=== PATIENT | male | born 1960 | race Caucasian/White ===

== ENCOUNTER 2016-09-14 09:17 | Inpatient (IN) ==
--- NOTE | 2016-09-14 09:39 | Diag Imaging Result Doc PS360 ---
EXAM: HEAD W/O CONTRAST HISTORY: injury TECHNIQUE: COMPARISON: 03/28/2016 FINDINGS: No parenchymal hemorrhage. No epidural or subdural hematoma. No subarachnoid hemorrhage. Mild atrophy. No mass identified on this noncontrasted exam. No hydrocephalus. No sinus opacification. Minimal right frontal scalp soft tissue swelling. No skull fracture. IMPRESSION: Mild right frontal scalp soft tissue swelling, but no intracranial injury. Electronically signed by Cezar Campbell 09/14/2016 9:36 AM
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
[2016-09-14] MEDS ORDERED: XYLOCAINE 1%/EPI 1:100,000 INJ ONE (09:47)
[2016-09-14] MEDS ORDERED: NORCO-10 PO ONE (09:48)
[2016-09-14] MEDS ORDERED: BOOSTRIX VACCINE IM ONE (09:48)
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
[2016-09-14] MEDS ORDERED: NS 1,000 ML IV ONE ×2 (11:57→15:53)
[2016-09-14 12:41] LABS: MANUAL DIFF NEEDED? NO
[2016-09-14 12:47] LABS: BASO% 0.3 % (0.0-0.8); EOS# 0.11 X1000 (0.0-0.7); EOS% 1.7 % (0.0-10.0); HEMATOCRIT 37.6 % (42.0-52.0); LYMPH# 1.75 X1000 (1.2-3.4); LYMPH% 26.6 % (20.5-51.1); MCH 30.2 PG (27-31); MCHC 34.6 g/dL (33-37); MCV 87.4 FL (81-99); MONO# 0.55 X1000 (0.11-0.59); MONO% 8.3 % (1.7-9.3); MPV 10.9 FL (7.4-10.4); NEUT% 63.1 % (42.2-75.2); PLT 181 X1000 (130-400)
[2016-09-14] MEDS ORDERED: ATROPINE IV ONE (12:59)
[2016-09-14] MEDS ORDERED: ATROPINE SYRINGE IV ONE ×3 (12:59→19:00)
[2016-09-14] MEDS ORDERED: EPINEPHRINE SYRINGE IV ONE ×2 (13:00→19:00)
[2016-09-14 13:11] LABS: AGAP 13; ALBUMIN 4.1 g/dL (3.5-5.0); ALKALINE PHOSPHATASE 76 U/L (32-122); BUN 11 mg/dL (8-22); CALCIUM 8.8 mg/dL (8.8-10.2); CHLORIDE 104 mmol/L (98-107); COSMO 280; GOT 18 U/L (10-34); GPT 11 U/L (10-44); POTASSIUM 4.4 mmol/L (3.5-5.1); SODIUM 141 mmol/L (136-145); TCO2 24 mmol/L (25-35); TOTAL BILIRUBIN 0.71 mg/dL (0.20-1.00); TOTAL PROTEIN 6.6 g/dL (6.3-8.3)
--- NOTE | 2016-09-14 13:43 | ED EKG INTERP ---
This chart was entered by Bright Koch Scribe, acting as scribe for Phyllis Oliver MD. EKG Interpretation - EKG Time of EKG reading by physician:: 12:55 EKG Read and Signed by:: Phyllis Oliver EKG Interpretation (*Must complete 3 of following elements*): Abnormal Rate: 59 Rhythm: Sinus Bradycardia Cath[place]in: normal QRS: normal CO Interval: normal ST Wave: normal Comments: ekg done after iv dose atropine This chart was documented by the indicated scribe, (Bright Koch, Scribe) and accurately reflects the services I performed and decisions made by me, Phyllis Oliver MD, as attested by the provider's signature.
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
[2016-09-14 13:56] LABS: UR AMPHETAMINES QUAL PRESUMPTIVE POSITIVE (NONE DETECT); UR BARBITUATES QUAL NONE DETECTED (NONE DETECT); UR BENZODIAZEPIN QUAL PRESUMPTIVE POSITIVE (NONE DETECT); UR CANNABINOIDS QUAL NONE DETECTED (NONE DETECT); UR COCAINE QUAL PRESUMPTIVE POSITIVE (NONE DETECT); UR METHADONE QUAL NONE DETECTED (NONE DETECT); UR OPIATES QUAL PRESUMPTIVE POSITIVE (NONE DETECT); UR OXYCODONE QUAL NONE DETECTED (NONE DETECT); UR PCP QUAL NONE DETECTED (NONE DETECT)
[2016-09-14] MEDS ORDERED: ZOFRAN IV PRN (15:53)
--- NOTE | 2016-09-14 16:30 | Diag Imaging Result Doc PS360 ---
EXAM: CHEST-PORTABLE HISTORY: dyspnea TECHNIQUE: Portable upright COMPARISON: 02/25/2016 FINDINGS: The lungs are well expanded. The heart is not enlarged. The vessels are not distended. No pneumonia. No pleural effusions identified. IMPRESSION: Negative chest. Electronically signed by Cezar Campbell 09/14/2016 4:27 PM
[2016-09-14] MEDS ORDERED: NORCO-5 PO PRN (16:31)
[2016-09-14 17:18] LABS: FREE T4 1.36 ng/dL (0.93-1.70)
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
[2016-09-14] MEDS ORDERED: XANAX PO SCH (21:00)
[2016-09-15 05:07] LABS: MANUAL DIFF NEEDED? NO
[2016-09-15 05:13] LABS: BASO% 0.2 % (0.0-0.8); EOS# 0.12 X1000 (0.0-0.7); EOS% 1.8 % (0.0-10.0); HEMATOCRIT 35.6 % (42.0-52.0); HEMOGLOBIN 12.3 g/dL (14.0-18.0); LYMPH% 25.8 % (20.5-51.1); MCH 30.7 PG (27-31); MCHC 34.6 g/dL (33-37); MCV 88.8 FL (81-99); MONO# 0.64 X1000 (0.11-0.59); MONO% 9.7 % (1.7-9.3); MPV 10.5 FL (7.4-10.4); NEUT% 62.5 % (42.2-75.2); PLT 168 X1000 (130-400); RBC 4.01 XMIL (4.7-6.1)
[2016-09-15 05:32] LABS: AGAP 9; BUN 12 mg/dL (8-22); CALCIUM 8.6 mg/dL (8.8-10.2); CHLORIDE 107 mmol/L (98-107); COSMO 281; POTASSIUM 4.2 mmol/L (3.5-5.1); SODIUM 141 mmol/L (136-145); TCO2 25 mmol/L (25-35)
--- NOTE | 2016-09-15 06:52 | EKG Report ---
Test Performed on : 09/14/2016 10:40:49 AM Test Reason : NO ORDER Blood Pressure : / mmHG Vent. Rate : 048 BPM Atrial Rate : 048 BPM P-R Int : 170 ms QRS Dur : 084 ms QT Int : 448 ms P-R-T Axes : 061 049 040 degrees QTc Int : 400 ms Sinus bradycardia. Otherwise normal ECG When compared with ECG of 25-FEB-2016 07:04, No significant change was found Unconfirmed Result
--- NOTE | 2016-09-15 07:35 | ECHO REPORT ---
ORDER DATE: 09/14/2016 INTERPRETING PHYSICIAN: Dr. Meyer REQUESTING PHYSICIAN: CLINICAL INDICATIONS: Bradycardia. M-MODE MEASUREMENTS: Right ventricle: 2.0 cm. Left ventricle end diastole: 6.2 cm. Left ventricle end systole: 3.7 cm. Posterior wall: 1.0 cm. Interventricular septum: 1.0 cm. Left atrium: 2.7 cm. Aortic root: 4.4 cm. SUMMARY OF 2-DIMENSIONAL IMAGING: The left ventricular function is normal. Ejection fraction estimated at 59%. The ventricular chamber is moderately enlarged. The aortic root is prominent. It actually appears to be slightly ectatic. Color flow mapping of the aortic valve shows a mild degree of regurgitation. The aortic valve has 3 cusps. There is no stenosis. The mitral valve looks normal. Color flow mapping indicates a very mild degree of regurgitation. Pulse wave Doppler of mitral inflow is normal. Tissue Doppler of septal and lateral mitral annulus averages 12 cm per second. Pulmonary venous flow is normal. There is no diastolic dysfunction. The inferior vena cava is not dilated. The tricuspid valve shows a trivial degree of regurgitation. Pulmonary pressure estimated at 27 mmHg. The pulmonic valve is normal. Color flow mapping unremarkable. The atria are not dilated. The patient was bradycardic during the study with heart rate in the range of 44-46 beats per minute. IMPRESSION: In summary, this study shows: 1. Moderately enlarged left ventricle with normal function. Ejection fraction 59%. No wall motion abnormality noted. 2. Very trivial degree of pulmonic, aortic, mitral, and tricuspid regurgitation. 3. No diastolic dysfunction. 4. No pulmonary hypertension. Pulmonary pressure estimated at 27 mmHg. 5. Prominent aortic root, somewhat ectatic. Clinical correlation recommended. cc: MD Javid Arguello CRNP
--- NOTE | 2016-09-15 10:58 | EKG Report ---
Test Performed on : 09/14/2016 12:55:19 PM Test Reason : ED. NOT ORDERED IN [place] Blood Pressure : / mmHG Vent. Rate : 058 BPM Atrial Rate : 058 BPM P-R Int : 162 ms QRS Dur : 094 ms QT Int : 470 ms P-R-T Axes : 066 049 050 degrees QTc Int : 461 ms Sinus bradycardia. Otherwise normal ECG No previous ECGs available Unconfirmed Result
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
[2016-09-15] MEDS ORDERED: MOTRIN PO PRN (11:22)
[2016-09-15] MEDS ORDERED: MORPHINE IV ONE (11:23)
[2016-09-15] MEDS ORDERED: KEFLEX PO SCH (11:30)
[2016-09-15 11:35] VITALS: BP 108/67
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
== END 2016-09-15 16:24 | disposition home or self-care (01) ==
LOC: SUPCPDRO → ED 09:17 → SUATTDRO 16:36 → 3S 16:36
PROVIDERS: ATTEND Internal Medicine